=== PATIENT | female | born 2000 | race Two or more races ===

== ENCOUNTER 2023-08-26 08:55 | Emergency (ER) | payer BC, SELFPAY ==
--- NOTE | ~2023-08-26 | XR_ITS ---
EXAMINATION: XR CHEST CLINICAL INFORMATION: Cough. COMPARISON: None available. TECHNIQUE: 2 views of the chest were obtained. FINDINGS: Normal appearance of the cardiomediastinal silhouette. No focal airspace opacities, pleural effusion or pneumothorax. No acute osseous findings. Visualized upper abdomen is within normal limits. XR/XR chest 2V IMPRESSION: No acute cardiopulmonary findings.
[2023-08-26 09:02] VITALS: BP 129/73; PULSE 83; RESP 16; TEMP 37.1; O2SAT 98; BMI 33.7
[2023-08-26 09:33] LABS: MANUAL DIFF FLAG NO
[2023-08-26 09:37] LABS: Basophils Percent Auto 0.2 % (0-2); Eosinophils Absolute Auto 0.3 X10*3/uL (0.0-0.4); Eosinophils Percent Auto 3.6 % (0-4); Hematocrit 41.5 % (37.0-47.0); Hemoglobin 14.1 g/dl (12.0-16.0); Imm Gran Abs Auto 0.03 X10*3/uL (0.00-0.03); Imm Gran Pct Auto 0.3 % (0.0-0.4); Lymphocytes Absolute Auto 3.2 X10*3/uL (1.2-4.9); Lymphocytes Percent Auto 36.2 % (20-40); Mean Corpuscular Hemoglobin 30.9 pg (27.0-33.0); Mean Corpuscular Volume 90.8 fL (80.0-98.0); Monocytes Absolute Auto 0.6 X10*3/uL (0.1-1.2); Monocytes Percent Auto 6.4 % (2-11); Neutrophils Absolute Auto 4.7 x10*3/uL (2.0-8.3); Neutrophils Percent Auto 53.3 % (45-73); Platelet Count 367 X10*3/uL (160-400); Red Blood Count 4.57 X10*6/uL (4.20-5.50); Red Cell Distribution Width 12.8 % (11.0-16.0); White Blood Count 8.8 X10*3/uL (4.8-10.8)
[2023-08-26 09:46] VITALS: BP 110/67; PULSE 62; RESP 18; TEMP 36.6; O2SAT 98
--- NOTE | 2023-08-26 10:12 | ED_ITS ---
HPI - General Adult General Chief complaint: General Medical Stated complaint: Respiratory infection Time Seen by Provider: 08/26/23 09:44 Source: patient Mode of arrival: ambulatory Limitations: no limitations History of Present Illness HPI narrative: 23 yo female with PMH significant for chronic abdominal complaints and prior microneural surgical repair of lip, presents to the ED with recent diagnosis of viral URI with worsening cough and pain with inspiration. She reports at-home hypotension with associated dizziness. States systolic BP in the 70s. Worsening symptoms prompted ED visit. She explains her symptoms began last and she was seen by her PCP who diagnosed her with a viral URI. She has been taking OTC Mucinex. She endorses associated symptoms of diaphoresis, ear fullness, pain behind her ears, difficulty breathing with cough, and chest tightness with cough lasting 2-3 minutes. Describes the tightness as though someone is pushing a cookie cutter or lego into her chest. Endorses coughing up brown/yellow phlegm. Denies fever and chills. Describes decrease in urinary output, despite increase in fluid intake. She has a hormonal IUD (Mirena). complaint: Worsening cough, chest tightness Onset (ago): day(s) Associated symptoms: cough, diaphoresis and shortness of breath Related Data Allergies Allergy/AdvReac Type Severity Reaction Status Date / Time amoxicillin Allergy Hives Verified 08/26/23 09:07 lamotrigine [From Lamictal] Allergy Rash Verified 08/26/23 09:07 Penicillins Allergy Hives Verified 08/26/23 09:07 prednisone Allergy Hives Verified 08/26/23 09:07 Review of Systems 2 Review of Systems: Yes all other systems are reviewed and are negative PENDING SALE TO [facility] Social History Social History Alcohol intake: current Alcohol intake frequency: holidays/special occasions only Smoked in Last 30 Days: Yes Use of substances other than those prescribed or required for medical reasons: Yes Substance Use Type: Marijuana Substance Use Frequency: Occasionally Last Used Substance: Days (ago) Advance Directives: No Advance Directives Information Provided: Yes Do you have a plan to hurt others: No Plan Physical Exam ED Vital Signs: Vital Signs - 24 hr 08/26/23 09:02 08/26/23 09:46 08/26/23 11:27 Temperature 98.8 F 98 F Pulse Rate 83 62 60 Respiratory Rate 16 18 Blood Pressure 129/73 110/67 103/64 Pulse Oximetry 98 98 Oxygen Delivery Method Room Air Room Air 08/26/23 11:27 08/26/23 11:30 08/26/23 12:08 Temperature 98.2 F Pulse Rate 80 76 64 Respiratory Rate 18 Blood Pressure 107/65 109/72 103/62 Pulse Oximetry 98 Oxygen Delivery Method Room Air 08/26/23 12:17 Temperature 98.6 F Pulse Rate 79 Respiratory Rate 16 Blood Pressure 103/67 Pulse Oximetry 98 Oxygen Delivery Method Room Air BMI result Body Mass Index 33.7 Appearance: Alert. Oriented X3. No acute distress. Head: normocephalic, atraumatic. Eyes: Pupils equal, round and reactive to light. ENT: Pharynx normal. No tonsillar swelling or exudate. Fluid and cerumen bilateral ears. Neck: Tenderness to palpation of postauricular and posterior cervical lymph nodes. Mild adenopathy. CVS: Normal heart rate and rhythm. Pulses normal. Respiratory: No respiratory distress. Decreased breath sounds of right lung base. Abdomen: Soft and nontender. Skin: Skin warm and dry. Normal skin color. Normal skin turgor. No rashes. Extremities: No lower extremity edema. No joint swelling. Neuro/psych: Oriented X 3. No motor deficit. No sensory deficit. Normal speech and cognition. Medical Decision Making Medical Decision Making MDM Narrative: 23 yo female with PMH significant for chronic abdominal complaints and prior microneural surgical repair of lip, presents to the ED with recent diagnosis of viral URI with worsening cough and pain with inspiration. She reports at-home hypotension with associated dizziness. States systolic BP in the 70s. Worsening symptoms prompted ED visit. Describes associated symptoms of diaphoresis, ear fullness, pain behind her ears, difficulty breathing with cough, and chest tightness with cough lasting 2-3 minutes. Describes the tightness as though someone is pushing a cookie cutter or lego into her chest. Endorses coughing up brown/yellow phlegm. Denies fever and chills. Describes decrease in urinary output, despite increase in fluid intake. Vitals within normal limits. ALT elevated, otherwise labs unremarkable. Viral panel negative. Chest x-ray is unremarkable. There is low suspicion of a pulmonary embolism, she is PERC negative. Orthostatic vital signs are negative. Most likely viral etiology. Patient is stable for discharge home with supportive care Differential Diagnosis Differential Diagnoses: The differential diagnosis associated with the presentation includes Pneumonia, viral upper respiratory infection, acute bronchitis. Suspicion for pulmonary embolism low, patient PERC negative. Lab Data MDM Lab Attestation statement: I reviewed the patient's lab results. No leukocytosis 08/26/23 09:25 08/26/23 09:25 Labs: Lab Results 08/26/23 Range/Units 09:25 WBC 8.8 (4.8-10.8) X10*3/uL RBC 4.57 (4.20-5.50) X10*6/uL Hgb 14.1 (12.0-16.0) g/dl Hct 41.5 (37.0-47.0) % MCV 90.8 (80.0-98.0) fL MCH 30.9 (27.0-33.0) pg MCHC 34.0 (31.0-35.0) g/dl RDW 12.8 (11.0-16.0) % Plt Count 367 (160-400) X10*3/uL MPV 8.0 L (9.4-12.3) fL Immature Gran % (Auto) 0.3 (0.0-0.4) % Neut % (Auto) 53.3 (45-73) % Lymph % (Auto) 36.2 (20-40) % [place] % (Auto) 6.4 (2-11) % Eos % (Auto) 3.6 (0-4) % Baso % (Auto) 0.2 (0-2) % Lymph # (Auto) 3.2 (1.2-4.9) X10*3/uL [place] # (Auto) 0.6 (0.1-1.2) X10*3/uL Eos # (Auto) 0.3 (0.0-0.4) X10*3/uL Baso # (Auto) 0.0 (0.0-0.2) X10*3/uL Abs Immat Gran (auto) 0.03 (0.00-0.03) X10*3/uL Absolute Neuts (auto) 4.7 (2.0-8.3) x10*3/uL Absolute Nucleated RBC 0.000 (0.0-0.012) X10*3/uL Nucleated RBC % (auto) 0.0 (0.0-0.2) /100WBC Sodium 137 (135-145) mmol/L Potassium 3.9 (3.3-5.1) mmol/L Chloride 103 (96-108) mmol/L Carbon Dioxide 24 (22-29) mmol/L Anion Gap 14 (12-20) BUN 9 (9-16) mg/dL Creatinine 0.55 (0.5-1.4) mg/dL Estim Creat Clear Calc 162.2 Estimated GFR > 60 Random Glucose 101 (60-115) mg/dL Calcium 9.2 (8.4-10.2) mg/dL Total Bilirubin 0.2 (0.0-1.0) mg/dL AST 29 (5-31) U/L ALT 37 H (0-31) U/L Alkaline Phosphatase 99 (39-117) U/L Total Protein 7.8 (6.5-8.0) g/dL Albumin 4.2 (3.5-5.0) g/dL Influenza Type A (PCR) NEGATIVE (Negative) Influenza Type B (PCR) NEGATIVE (Negative) RSV RNA Qual (PCR) NEGATIVE (Negative) SARS-CoV-2 RNA (RT-PCR) NEGATIVE (Negative) Independent Interpretation I performed an independent interpretation of an: Plain X-Ray Interpretation: Chest x-ray clear without any focal infiltrate or effusion Radiology Impression Discussion of test interpretation with radiology: I have reviewed the radiologist's reading. Radiologist Impression: EXAMINATION: XR CHEST CLINICAL INFORMATION: Cough. COMPARISON: None available. TECHNIQUE: 2 views of the chest were obtained. FINDINGS: Normal appearance of the cardiomediastinal silhouette. No focal airspace opacities, pleural effusion or pneumothorax. No acute osseous findings. Visualized upper abdomen is within normal limits. XR/XR chest 2V IMPRESSION: No acute cardiopulmonary findings. Prescription Management I considered prescription management with: Pain Medication and Antibiotic Critical Care Time Critical Care Time Critical Care Time: No Discharge Plan Discharge Clinical Impression: Bronchitis Patient Disposition: Home, Self-Care Instructions: Acute Bronchitis (ED) Additional Instructions: Your chest x-ray today was normal. Your lab work today was normal. You tested negative for COVID, flu, RSV. Your vital signs were normal. Recommend rest and supportive care. Take cold and flu medications as needed for your symptoms. Recommend anti-inflammatories like ibuprofen or naproxen for pain. Drink plenty of fluids. Did not go back to work until your symptoms are better. Follow-up with your doctor. If you develop new or worsening symptoms call 911 or come back to the ER for further evaluation. Stand Alone Forms: Work/School Release Interventions: ED Discharge Assessment Last Done: 08/26/23 12:17 Discharge Date/Time: 08/26/23 12:18 Print Language: Cypriot
[2023-08-26 10:19] LABS: Alanine Aminotransferase 37 U/L (0-31); Albumin Level 4.2 g/dL (3.5-5.0); Alkaline Phosphatase 99 U/L (39-117); Anion Gap 14 (12-20); Aspartate Amino Transferase 29 U/L (5-31); Bilirubin Total 0.2 mg/dL (0.0-1.0); Blood Urea Nitrogen 9 mg/dL (9-16); Calcium 9.2 mg/dL (8.4-10.2); Carbon Dioxide 24 mmol/L (22-29); Chloride 103 mmol/L (96-108); Creatinine Clr Calc Pharmacy 162.2; Estimated Glomerular Filt Rate > 60; Glucose Random 101 mg/dL (60-115); Potassium 3.9 mmol/L (3.3-5.1); Sodium 137 mmol/L (135-145); Total Protein 7.8 g/dL (6.5-8.0)
[2023-08-26 10:23] LABS: Influenza A PCR NEGATIVE (Negative); Influenza B PCR NEGATIVE (Negative); Resp Syncy Virus RNA Qual PCR NEGATIVE (Negative); SARS COV2 PCR INHOUSE NEGATIVE (Negative)
[2023-08-26 11:27] VITALS: BP 103/64; BP 107/65; PULSE 60; PULSE 80
[2023-08-26 11:30] VITALS: BP 109/72; PULSE 76
[2023-08-26 12:08] VITALS: BP 103/62; PULSE 64; RESP 18; TEMP 36.8; O2SAT 98
[2023-08-26 12:17] VITALS: BP 103/67; PULSE 79; RESP 16; TEMP 37; O2SAT 98
== END 2023-08-26 12:18 | disposition home or self-care (01) ==
PROVIDERS: Emergency Provider Student in an Organized Health Care Education/Training Program
DX: R05.9 Cough, unspecified (principal); I95.9 Hypotension, unspecified; R42 Dizziness and giddiness; Z03.818 Encounter for observation for suspected exposure to other biological agents ruled out; Z79.899 Other long term (current) drug therapy
CPT/HCPCS: 0241U; 71046; 80053; 85025; 99283; 99284

== ENCOUNTER 2023-09-13 18:02 | Emergency (ER) | payer OTHER, BC, SELFPAY ==
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
[2023-09-13 18:13] VITALS: BP 131/79; PULSE 99; RESP 18; TEMP 36.5; O2SAT 98; BMI 34.6
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
[2023-09-13] MEDS: Acetaminophen 325 MG TABLET 975 MG PO (19:48)
[2023-09-13 20:36] VITALS: BP 128/75; PULSE 90; RESP 18; TEMP 36.7; O2SAT 98
== END 2023-09-13 20:37 | disposition home or self-care (01) ==
PROVIDERS: Emergency Provider Emergency Medicine; PCP Student in an Organized Health Care Education/Training Program
DX: S93.402A Sprain of unspecified ligament of left ankle, initial encounter (principal); W22.8XXA Striking against or struck by other objects, initial encounter; Y93.F9 Activity, other caregiving; Y92.89 Other specified places as the place of occurrence of the external cause; Y99.0 Civilian activity done for income or pay; F12.90 Cannabis use, unspecified, uncomplicated
CPT/HCPCS: 73610; 99283; 99284

== ENCOUNTER 2023-10-22 12:50 | Emergency (ER) | payer OTHER, SELFPAY ==
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
[2023-10-22 13:01] VITALS: PULSE 115; O2SAT 98
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
[2023-10-22 13:29] VITALS: BP 117/77; PULSE 88; RESP 18; TEMP 36.1; O2SAT 97; BMI 29.3
[2023-10-22 13:29] LABS: MANUAL DIFF FLAG NO
[2023-10-22 13:31] LABS: Basophils Percent Auto 0.1 % (0-2); Eosinophils Absolute Auto 0.1 X10*3/uL (0.0-0.4); Eosinophils Percent Auto 0.7 % (0-4); Hematocrit 41.2 % (37.0-47.0); Hemoglobin 14.4 g/dl (12.0-16.0); Imm Gran Abs Auto 0.01 X10*3/uL (0.00-0.03); Imm Gran Pct Auto 0.1 % (0.0-0.4); Lymphocytes Absolute Auto 3.2 X10*3/uL (1.2-4.9); Lymphocytes Percent Auto 42.2 % (20-40); Mean Corpuscular Hemoglobin 31.1 pg (27.0-33.0); Mean Platelet Volume 8.4 fL (9.4-12.3); Monocytes Absolute Auto 0.3 X10*3/uL (0.1-1.2); Monocytes Percent Auto 3.6 % (2-11); Neutrophils Percent Auto 53.3 % (45-73); Platelet Count 360 X10*3/uL (160-400); Red Blood Count 4.63 X10*6/uL (4.20-5.50); Red Cell Distribution Width 12.2 % (11.0-16.0); White Blood Count 7.5 X10*3/uL (4.8-10.8)
[2023-10-22 13:44] LABS: INTERNATIONAL NORM RATIO 0.9 (0.9-1.1); Prothrombin Time 11.4 SEC (11.1-13.3)
[2023-10-22] MEDS: ondansetron HCL 4 MG/2 ML VIAL IVPUSH (13:47)
[2023-10-22 14:08] LABS: HCG Quantitative < 2 mIU/mL
[2023-10-22 14:17] LABS: Alanine Aminotransferase 24 U/L (0-31); Albumin Level 4.6 g/dL (3.5-5.0); Alkaline Phosphatase 88 U/L (39-117); Anion Gap 11 (12-20); Aspartate Amino Transferase 24 U/L (5-31); Bilirubin Total 0.4 mg/dL (0.0-1.0); Blood Urea Nitrogen 9 mg/dL (9-16); Calcium 9.5 mg/dL (8.4-10.2); Carbon Dioxide 24 mmol/L (22-29); Chloride 108 mmol/L (96-108); Creatinine Clr Calc Pharmacy 131.8; Estimated Glomerular Filt Rate > 60; Glucose Random 105 mg/dL (60-115); Magnesium 2.1 mg/dL (1.6-2.6); Potassium 3.6 mmol/L (3.3-5.1); Sodium 139 mmol/L (135-145); Total Protein 8.1 g/dL (6.5-8.0)
[2023-10-22 14:49] LABS: Troponin-I High Sensitivity < 2.7 ng/L (<3.5-17.0)
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
[2023-10-22] MEDS: Acetaminophen 325 MG TABLET 975 MG PO (15:18)
[2023-10-22] MEDS: iohexoL 350 MG/ML 100 ML INFUS..BTL IV (15:20)
--- NOTE | 2023-10-22 15:21 | PC.NURSE ---
AMA paperwork signed by patient, aware of risks, advised patient again to stay until workup is complete, patient adamantly refusing to stay discharge paperwork signed, patient ambulatory with steady gait out of department
[2023-10-22 15:24] VITALS: BP 117/70; PULSE 90; RESP 16; TEMP 36.5; O2SAT 100
== END 2023-10-22 15:26 | disposition left against medical advice (07) ==
PROVIDERS: Physician Assistant; Emergency Provider Emergency Medicine
DX: S13.4XXA Sprain of ligaments of cervical spine, initial encounter (principal); S39.012A Strain of muscle, fascia and tendon of lower back, initial encounter; S06.0X0A Concussion without loss of consciousness, initial encounter; S20.213A Contusion of bilateral front wall of thorax, initial encounter; R51.9 Headache, unspecified; M54.2 Cervicalgia; R11.2 Nausea with vomiting, unspecified; R10.2 Pelvic and perineal pain; V43.52XA Car driver injured in collision with other type car in traffic accident, initial encounter; Y93.9 Activity, unspecified; Y92.410 Unspecified street and highway as the place of occurrence of the external cause; Y99.8 Other external cause status; Z79.899 Other long term (current) drug therapy
CPT/HCPCS: 36415; 70450; 71260; 72125; 74177; 80053; 83735; 84484; 84702; 85025; 85610; 96374; 99284; J2405; Q9967